=== PATIENT | female | born 1990 | race Two or more races ===

== ENCOUNTER 2017-04-10 23:10 | Emergency (ER) | payer OTHER ==
[~2017-04-10] VITALS: Ht 154.9 cm; Wt 88.0 kg
[2017-04-11] MEDS ORDERED: ZOFRAN ODT4 MG PO (03:11)
[2017-04-11] MEDS ORDERED: ZIAC 2.5-6.251 EACH PO (03:11)
[2017-04-11] MEDS ORDERED: PEPCID40 MG PO (03:11)
[2017-04-11] MEDS ORDERED: LEVSIN/SL0.125 MG SL (03:11)
== END 2017-04-11 06:15 ==
LOC: ER 23:10
DX: K52.89 Other specified noninfective gastroenteritis and colitis (principal)